=== PATIENT | male | born 1965 | race Caucasian/White ===

== ENCOUNTER 2024-07-03 08:18 | Day surgery (SDC) | payer MEDICAID, SELFPAY ==
[2024-07-03] VITALS (11 sets, daily range): BP systolic 129–155; BP diastolic 69–99; PULSE 60–76; RESP 14–18; TEMP 36.1–36.6; O2SAT 95–99; BMI 26.5
[2024-07-03] MEDS: sodium chloride 0.9% 1,000 ML 30 ML IV (08:43)
--- NOTE | 2024-07-03 08:46 | SUR.PREOP ---
Patient has a patch to left upper arm covered in a tegaderm. He states this is a patch that cannot come off, that it is changed every week by his counselor and it shows if he has any narcotics in his system. He states he will be seeing his counselor today and getting a new patch.
--- NOTE | 2024-07-03 09:27 | W.PM.OPSUD ---
Surgery/Procedure H&P Update DATE OF PROCEDURE: July 03, 2024 DATE H&P PERFORMED: 06/28/24 H&P UPDATE INFORMATION: I have reviewed H&P completed within last 30 days, I have examined patient prior to procedure, No changes to prior documentation and [place] [facility] [place] indicated PLANNED PROCEDURE: Operation Date: 07/03/24 10:05 Proposed Procedures p Excision lesion from abdomen x4, 59714, D17.9(Not Applicable) - Manfred Shaikh MD s Excision lesion from left lower extremity (thigh)(Left) - Manfred Shaikh MD
--- NOTE | 2024-07-03 09:45 | ANES.PREANE2 ---
Pre-Anesthetic Assessment Height/Weight: Height 5 ft 10 in Weight 185 lb Temp Pulse Resp BP Pulse Ox O2 Del Method 97.4 F L 64 18 144/99 99 Room Air 07/03/24 08:35 07/03/24 08:35 07/03/24 08:35 07/03/24 08:35 07/03/24 08:35 07/03/24 08:35 Operation Date: 07/03/24 10:05 Proposed Procedures p Excision lesion from abdomen x4, 32779, D17.9(Not Applicable) - Manfred Shaikh MD s Excision lesion from left lower extremity (thigh)(Left) - Manfred Shaikh MD Last intake: Intake Last Liquid Date 07/02/24 Last Liquid Time 22:00 Last Solid Date 07/02/24 Last Solid Time 22:00 Social No alcohol and No tobacco Exam alert, oriented x 3, clear to auscultation bilaterally and regular rate & rhythm Airway Submandibular: within normal limits Cervical ROM: within normal limits Mallampati: Class III Dentition: full Anesthetic Plan ASA status: 2 Anesthesia: General Other: No prior issues with anesthesia NPO since midnight Patient is on probation, has a drug detection patch on currently. Patient is aware that he will receive drugs that will show up on this patch. 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 Plan for general anesthetic Medications/Allergies Home Medications Medication Instructions Recorded Confirmed Last Taken Type citalopram 40 mg tablet 40 mg PO DAILY 06/28/24 06/30/24 07/02/24 History trazodone 50 mg tablet 50 mg PO DAILY 06/28/24 07/03/24 Unknown History cholecalciferol (vitamin D3) 50 50 mcg PO DAILY 07/03/24 07/03/24 07/02/24 History mcg (2,000 unit) tablet (Vitamin D3) vitamin B complex 1 tab PO DAILY 07/03/24 07/03/24 07/02/24 History Allergies Allergy/AdvReac Type Severity Reaction Status Date / Time Penicillins Allergy Severe Unknown Verified 06/28/24 08:45 sulfamethoxazole Allergy Severe ALGY-Rash Verified 06/28/24 08:45 [From Bactrim] trimethoprim [From Bactrim] Allergy Severe ALGY-Rash Verified 06/28/24 08:45 Current Medications Generic Name Dose Route Start Last Admin Trade Name Freq PRN Reason Stop Dose Admin Sodium Chloride 1,000 mls @ 30 mls/hr 07/03/24 08:30 07/03/24 08:43 Sodium Chloride 0.9% IV 07/04/24 08:29 30 mls/hr .Q24H TORO Administration PFSH Anesthesia Family History (Updated 06/28/24 @ 08:50 by Josefina Harris MA) Father Lipoma Social History Smoking and tobacco/nicotine status: never used tobacco/nicotine Data Anesthesia Cardiac Studies: No Data to Display
[2024-07-03] MEDS: vancomycin 1,000 MG in sodium chloride 0.9% 250 ML 250 MG IV (10:10)
--- NOTE | 2024-07-03 10:59 | SUR.PREOP ---
Patient complains of itching on head and redness. Vanc infusion stopped, anesthesia notified. They are about to take patient to OR and plan to give him IV benadryl and continue his vanc at a slower rate. OR director advertising notified as well as he is in room seeing patient.
[2024-07-03] MEDS: lidocaine-epi 1% 20 mL INJ INJECTION (11:54)
[2024-07-03] MEDS: BUPivacaine 0.25% INJ 10 mL INJECTION (11:54)
--- NOTE | 2024-07-03 12:08 | PM.OP ---
Operative Report Date of procedure: July 03, 2024 Pre-op diagnosis: Multiple subcutaneous masses of the abdominal wall and left lower extremity Post-op diagnosis: Same Post-op findings: Upper abdominal wall lesion measuring 1 x 2 x 1 cm, mid abdominal wall lesion measuring 1 x 1 x 1 cm, lower abdominal wall lesion measuring 1 x 2 x 1 cm, upper left thigh lesion measuring 3 x 2 x 1 cm, lower left eye lesion measuring 1 x 1 cm Procedure done: Excision of multiple subcutaneous masses of the abdominal wall and left lower extremity Specimens removed/disposition: Upper abdominal wall lesion measuring 1 x 2 x 1 cm, mid abdominal wall lesion measuring 1 x 1 x 1 cm, lower abdominal wall lesion measuring 1 x 2 x 1 cm, upper left thigh lesion measuring 3 x 2 x 1 cm, lower left eye lesion measuring 1 x 1 cm Surgeon: Manfred Shaikh MD C.O.D. Audit Clerk: SHANTANU OR Staff Estimated blood loss: 5 Complications: none Brief History: 58-year-old male with history of multiple lipomas in the past who presented to my clinic with multiple subcutaneous lesions on the abdominal wall and also on the left thigh. After discussion risk benefits with side to proceed with excision. Procedure: Patient was brought in to the OR, he was placed in a supine position. General anesthesia was given. The abdomen and left tight were prepped and draped in the usual sterile fashion and a timeout was conducted. The areas of the lesions were marked in the preop holding. I placed my attention to the upper thigh mass and made an incision of about 3.5 cm overlying the lesion, the incision was deepened to the subcutaneous tissue until the subcutaneous mass was identified, the subcutaneous mass was circumferentially dissected using a hemostat and excised from the underlying fascia using electrocautery, the lesion was labeled and sent to pathology. I then proceeded to irrigate the wound, hemostasis was achieved and the wound was closed in layers using #3-0 Vicryl for the subcutaneous tissue and #4-0 Monocryl for the skin. I placed my attention to the lower thigh mass and made an incision of about 1.5 cm overlying the lesion, the incision was deepened to the subcutaneous tissue until the subcutaneous mass was identified, the subcutaneous mass was circumferentially dissected using a hemostat and excised from the underlying fascia using electrocautery, the lesion was labeled and sent to pathology. I then proceeded to irrigate the wound, hemostasis was achieved and the wound was closed in layers using #3-0 Vicryl for the subcutaneous tissue and #4-0 Monocryl for the skin. I placed my attention to the upper abdominal wall mass and made an incision of about 2 cm overlying the lesion, the incision was deepened to the subcutaneous tissue until the subcutaneous mass was identified, the subcutaneous mass was circumferentially dissected using a hemostat and excised from the underlying fascia using electrocautery, the lesion was labeled and sent to pathology. I then proceeded to irrigate the wound, hemostasis was achieved and the wound was closed in layers using #3-0 Vicryl for the subcutaneous tissue and #4-0 Monocryl for the skin. I placed my attention to the mid abdominal wall mass and made an incision of about 2 cm overlying the lesion, the incision was deepened to the subcutaneous tissue until the subcutaneous mass was identified, the subcutaneous mass was circumferentially dissected using a hemostat and excised from the underlying fascia using electrocautery, the lesion was labeled and sent to pathology. I then proceeded to irrigate the wound, hemostasis was achieved and the wound was closed in layers using #3-0 Vicryl for the subcutaneous tissue and #4-0 Monocryl for the skin. I placed my attention to the Lower abdominal wall mass and made an incision of about 3 cm overlying the lesion, the incision was deepened to the subcutaneous tissue until the subcutaneous mass was identified, the subcutaneous mass was circumferentially dissected using a hemostat and excised from the underlying fascia using electrocautery, the lesion was labeled and sent to pathology. I then proceeded to irrigate the wound, hemostasis was achieved and the wound was closed in layers using #3-0 Vicryl for the subcutaneous tissue and #4-0 Monocryl for the skin. Inspection of the wounds and a compressive dressing was applied on top of it. At the end of the procedure all counts were correct, the patient tolerated well the procedure and was transferred to the PACU in stable condition.
--- NOTE | 2024-07-03 13:20 | ANE.PACU2 ---
Inpatient post-anesthesia follow up: Airway intact: Yes Vital signs: Temperature 97.8 F Pulse Rate 61 Respiratory Rate 18 Blood Pressure 139/79 Pulse Oximetry 97 Oxygen Delivery Me thod Room Air Oxygen Flow Rate Fraction of Inspir ed Oxygen Hydration adequate: Yes Nausea and vomiting: No Pain level: 1 Mental status: Baseline
== END 2024-07-03 13:28 | disposition home or self-care (01) ==
PROVIDERS: PCP Registered Nurse; Visit Provider Surgery
PROC: (CPT 11401; principal; 2024-07-03 09:55)
PROC: (CPT 11401; 2024-07-03 09:55)
DX: D17.1 Benign lipomatous neoplasm of skin and subcutaneous tissue of trunk (principal); D17.24 Benign lipomatous neoplasm of skin and subcutaneous tissue of left leg
CPT/HCPCS: 11401; 11403; 13101; 22902 ×3; 88304; 88307; J1100; J1200; J2405; J2704; J3010; J3370; J3490; J7030; J7050